=== PATIENT | female | born 1955 | race Caucasian/White ===

== ENCOUNTER → 2017-12-27 11:14 | Outpatient (POV) | payer BC, SELFPAY | PROVIDERS: Visit Provider Nurse Practitioner Acute Care | DX: Z00.00 Encounter for general adult medical examination without abnormal findings (principal) ==

== ENCOUNTER → 2018-02-07 15:21 | Outpatient (POV) | payer BC, SELFPAY | PROVIDERS: Visit Provider Nurse Practitioner Acute Care | DX: Z00.00 Encounter for general adult medical examination without abnormal findings (principal) ==

== ENCOUNTER 2024-12-11 09:56 | Day surgery (SDC) | payer MEDICARE, OTHER, SELFPAY ==
[2024-12-05 14:06] VITALS: BMI 23.6
--- NOTE | 2024-12-07 17:52 | EXP.HP ---
History of Present Illness *Admission Date: 12/11/24 *History of present illness: Mrs. Phillips is a 69-year-old female who is here for diagnostic EGD. 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 She did not improve with Voquezna. She was also given Xifaxan without improvement. She can have the attacks 3-4 times daily. Her last EGD and colonoscopy together were in October 2022. She did have some mild esophageal dysmotility and bile reflux with gastropathy. I do have a CT report of the abdomen and pelvis from October 2020 which was normal. The examination is deemed medically necessary for diagnostic EGD. The patient has been seen, interviewed and examined prior to the procedure by both myself and the anesthesia provider. [facility] Disclaimer: The information contained in this section may have been updated after the patient was seen, as this information can be updated by other users. Medical History Uterine cancer Stomach ulcer Sliding hiatal hernia Sleep apnea Kidney stones High blood pressure Gastric polyps Esophageal dysmotility Colon polyps Anemia Surgical History History of removal of cyst History of appendectomy History of hysterectomy History of liver biopsy History of cholecystectomy History of carpal tunnel release of both wrists Family History Father Pancreatic cancer Other Family history of cancer Heart attack Stroke Social History (Updated 12/11/24 @ 10:45 by Darin Harman CRNA) Smoking Status: Never smoker alcohol intake: never substance use type: denies use current occupational status: employed Travel in the last 8 weeks?: None household members: none housing: house current occupation: [employer] current occupational exposures/hazards: Yes caffeine: Yes Have you lived/traveled outside [place] in past 30 days?: No Contact w/someone who lives/traveled outside [place] past 30 days?: No Exposure to someone with infectious disease in past 14 days?: No Do you have a fever (greater than 100.4 F or 38 C)?: No Have you tested positive for COVID-19?: No Exposed to someone with COVID-19 in past 14 days?: No Do you have a sore throat?: No Do you have a cough?: No Do you have any weakness?: No Are you experiencing any nausea/vomitting?: No Do you have any diarrhea?: No Are you experiencing any unusual bleeding?: No Do you have any muscle aches/pain?: No Do you have any abdominal pain?: No Are you experiencing loss of taste or smell?: No Other Medical History Have you received the Flu Vaccine for this season: Yes Have you received the Pneumonia Vaccine: Yes Review of Systems Review of Systems Review of systems (narrative): Negative *Cardiovascular Comments: Negative *Gastrointestinal Comments: Negative *Genitourinary Comments: Negative *Musculoskeletal Comments: Negative *Neurologic Comments: Negative Meds Home Medications and Allergies Home Medications ?Medication ?Instructions ?Recorded ?Confirmed ?Type triamterene 75 1 ea PO DAILY blood pressure 10/25/17 12/11/24 History mg-hydrochlorothiazide 50 mg tablet (Maxzide) venlafaxine 150 mg 150 mg PO DAILY mood 10/25/17 12/11/24 History capsule,extended release 24 hr (Effexor XR) metformin 1,000 mg tablet 1,000 mg PO BID 10/24/20 12/11/24 History montelukast 10 mg tablet 10 mg PO DAILY 10/24/20 12/11/24 History potassium chloride 10 mEq 10 meq PO DAILY 10/24/20 12/11/24 History tablet,extended release topiramate 50 mg tablet (Topamax) 50 mg PO DAILY 10/24/20 12/11/24 History fluticasone propionate 50 2 spray intranasal DAILY 01/11/24 12/11/24 History mcg/actuation nasal spray,suspension sacrosidase 8,500 unit/mL oral 1 ml PO ACHS 01/11/24 12/11/24 History solution (Sucraid) sucralfate 1 gram tablet 1 g PO BID 01/11/24 12/11/24 History valsartan 40 mg tablet 40 mg PO DAILY 01/11/24 12/11/24 History vonoprazan 20 mg tablet (Voquezna) 20 mg PO DAILY 01/11/24 12/11/24 History fluticasone fur. 200 mcg-umeclid 1 ea inhalation DAILY 07/11/24 12/11/24 History 62.5 mcg-vilant 25 mcg inhalat.powder (Trelegy Ellipta) polyethylene glycol 3350 17 17 g PO DAILY 07/11/24 12/11/24 History gram/dose oral powder (Miralax) psyllium husk 6 gram/6 gram oral 1 tbsp PO DAILY 07/11/24 12/11/24 History powder (Konsyl Sugar-Free) cholecalciferol (vitamin D3) 25 25 mcg PO DAILY 09/04/24 12/11/24 History mcg (1,000 unit) capsule ferrous sulfate 325 mg (65 mg 325 mg PO Q OTHER DAY 09/04/24 12/11/24 History iron) tablet (Feosol) Bifidobacterium longum 10 million 1 cell PO DAILY 11/16/24 12/11/24 History cell capsule (Align (B.longum)) atorvastatin 20 mg tablet 10 mg PO DAILY 11/16/24 12/11/24 History buspirone 10 mg tablet 20 mg PO BID 11/16/24 12/11/24 History New Prescriptions to Start Prescriptions: Allergies Allergy/AdvReac Type Severity Reaction Status Date / Time amoxicillin Allergy Severe Redness of Verified 12/11/24 10:25 Skin NSAIDS (Non-Steroidal Allergy Severe Swelling Verified 12/11/24 10:25 Anti-Inflamma of Lip/Tongue/Throat Penicillins Allergy Severe Redness of Verified 12/11/24 10:25 Skin Exam Data for Last 24 hours I & O for Last 24 hours: Intake & Output 12/04/24 12/05/24 12/06/24 12/07/24 23:59 23:59 23:59 23:59 Weight 138 lb *Routine HEENT Exam Head: Present normocephalic Eye: Present EOMI and PERRL ENT: Present mucous membranes moist *Routine Neck Exam Neck: Present supple *Routine Respiratory Exam Respiratory: Present CTA bilaterally *Routine Cardiovascular Exam Cardiovascular: Present RRR *Routine Abdominal Exam Abdominal: Present soft and normoactive bowel sounds; Absent tenderness *Routine Rectal Exam Rectal:: deferred *Routine Genitalia Exam Genitalia:: deferred *Routine Extremities Exam Extremities: Absent cyanosis, clubbing or edema *Routine Skin Exam Skin: Present warm; Absent rash *Routine Neurological Exam Neurological: Present alert and oriented X3 Assessment and Plan *Assessment and plan (1) Epigastric pain: Status: Acute Category: Medical Code(s): R10.13 - Epigastric pain (2) Functional dyspepsia: Status: Acute Category: Medical Code(s): K30 - Functional dyspepsia (3) Bloating: Status: Acute Category: Medical Code(s): R14.0 - Abdominal distension (gaseous) (4) Sucrase-isomaltase deficiency: Status: Acute Category: Medical Code(s): E74.31 - Sucrase-isomaltase deficiency Plan A/P: 1. Epigastric abdominal pain, bloating and dyspepsia which has been intractable is the preprocedural diagnosis. The patient will be anesthetized/sedated using MAC sedation. The patient has been seen and examined. Cardiac and lung assessment prior to the examination is stable. Proceed with planned diagnostic EGD.
--- NOTE | 2024-12-11 06:48 | HMH.PROCNOTE ---
[facility] Procedure Note Date: 12/11/24 Time: 11:34 Procedure Note:: Upper Endoscopy Procedure Report: Esophagogastroduodenoscopy with cold biopsies Endoscopost: Sincere Andrews II, MD Referring Physician: KEITH Hale Date of Procedure: December 11, 2024 Equipment: Olympus GIF-1100 standard upper endoscope Sedation: MAC sedation Indications: Mrs. Phillips is a 69-year-old female who is here for diagnostic EGD. 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 This can occur 3-4 times per night. She does state that she gets relief with taking Sucraid (not with a meal). She did not improve with Voquezna. She was also given Xifaxan without improvement. She can have the attacks 3-4 times daily. Her last EGD and colonoscopy together were in October 2022. She did have some mild esophageal dysmotility and bile reflux with gastropathy. I do have a CT report of the abdomen and pelvis from October 2020 which was normal. She does report a moderate amount of bloating, gassiness and belching. She has intermittent nausea, early satiety and heartburn. As long as she takes ClearLax and Konsyl, she has more regulated bowel function. The examination is deemed medically necessary for diagnostic EGD. Procedure: Prior to the procedure, a history and physical exam was performed, and patient's medications and allergies were reviewed. The risks, benefits and alternatives of the sedation and procedure were discussed with the patient. All questions were answered and informed consent was obtained. The patient was brought to the procedure room. Patient identification and proposed procedure were verified by the physician and the nurse. The patient was placed in a left lateral decubitus position and the scope was passed under direct vision. Throughout the procedure, the patient's blood pressure, pulse, and oxygen saturations were monitored continuously. The upper GI endoscopy was accomplished without difficulty. The patient tolerated the procedure well. Findings: The scope was passed directly into the upper esophagus and advanced to the third portion of the duodenum. The post bulbar duodenum and duodenal bulb were normal with normal mucosa and conniventes. A cold biopsy was taken from the second portion of the duodenum for the disaccharidase assay. The scope was withdrawn through a normal duodenal bulb and pylorus into the stomach. There was moderate linear reactive gastropathy of the antrum and body of the stomach with some bile reflux. There were a few gastric fundic gland polyps. Upon retroflexion there was no hiatal hernia. There was some proximal chronic gastritis and cold biopsies were obtained from the proximal lesser curvature to rule out H. pylori. The scope was then withdrawn into the esophagus. There was no evidence of reflux esophagitis or Malave's. There were tertiary contractions and evidence of mild esophageal dysmotility. The remainder of the esophageal mucosa was normal. Impression: 1. Nonerosive GERD with mild esophageal dysmotility 2. Moderate linear reactive gastropathy (from bile reflux) Plan: I will follow-up the biopsies and disaccharidase assay. I will discuss the findings with the patient and family as well as treatment options. She is using Sucraid for on-demand relief of her dyspepsia. I do feel that she would be better served by using OTC herbal Iberogast and continue treatment for neuromodulation (i.e. buspirone). I would also consider repeat imaging of the abdomen to exclude any other intra-abdominal etiology.
[2024-12-11 10:13] VITALS: BP 134/75; PULSE 85; RESP 16; TEMP 36.4; O2SAT 100; BMI 23.6
[2024-12-11] MEDS: LACTATED RINGERS 1000ML 1,000 ML 50 ML IV (10:27)
[2024-12-11 10:28] LABS: POC Glucose,Bedside 85 gm/dL (70-110)
--- NOTE | 2024-12-11 10:43 | EXP.ANES.CKL ---
[facility] Disclaimer: The information contained in this section may have been updated after the patient was seen, as this information can be updated by other users. Medical History Uterine cancer Stomach ulcer Sliding hiatal hernia Sleep apnea Kidney stones High blood pressure Gastric polyps Esophageal dysmotility Colon polyps Anemia Surgical History History of removal of cyst History of appendectomy History of hysterectomy History of liver biopsy History of cholecystectomy History of carpal tunnel release of both wrists Family History Father Pancreatic cancer Other Family history of cancer Heart attack Stroke Social History (Updated 12/11/24 @ 10:14 by Michelle Elias RN) Smoking Status: Never smoker alcohol intake: never substance use type: denies use current occupational status: employed Travel in the last 8 weeks?: None household members: none housing: house current occupation: [employer] current occupational exposures/hazards: Yes caffeine: Yes [facility] Anesthesia Checklist Patient Identification Patient Identification: Arm Band and Family Structural Data Admitted From: Home Planned Operative Procedure/s: EGD Consent for Planned Operative Procedure(s) Verified: Yes Verified Documents: Surgical Consent and History and Physical NPO Status Verified Time NPO: 00:00 Additional verifications Patient : No Anesthesia Reactions: No Hx Blood Transfusions: No Blood Transfusion Reaction: No Cephalosporin Allergy: Yes Previous Colonoscopy: Yes Airway Assessment Mallampati Score:: Class I Dentition: Edentulous Neurological Assessment Level of Consciousness: Awake, Alert, Appropriate and Follows Commands Hx Seizures: No Numbness or tingling in extremities: No Anesthesia Plan Anesthesia Risk discussed: Yes ASA Class: II Anesthesia Type: MAC Preoperative Comments Pre-Operative Comments: Poor heart pumping. Asthma. NIDDM. Severe stomach ache.
[2024-12-11 11:38] VITALS: BP 114/61; PULSE 78; RESP 18; TEMP 36.6; O2SAT 97
[2024-12-11 11:48] VITALS: BP 117/66; PULSE 78; RESP 18; TEMP 36.6; O2SAT 96
[2024-12-11 11:58] VITALS: BP 110/64; PULSE 76; RESP 18; TEMP 36.6; O2SAT 97
[2024-12-11 12:08] VITALS: BP 114/69; PULSE 75; RESP 18; TEMP 36.6; O2SAT 97
[2024-12-14 16:57] LABS: Interpretation Notes (.); Lactase 40.78 (>/= 14.0); Maltase 175.25 (>/= 110.0); Palatinase 12.55 (>/= 8.5); Reference Notes (.); Sucrase 51.54 (>/= 25.0)
== END 2024-12-11 12:22 | disposition home or self-care (01) ==
PROVIDERS: PCP Nurse Practitioner Family; Visit Provider Internal Medicine Gastroenterology
PROC: 0DJ08ZZ Inspection of Upper Intestinal Tract, Via Natural or Artificial Opening Endoscopic (ICD-10-PCS; CPT 43239; principal; 2024-12-11 11:30)
DX: K30 Functional dyspepsia (principal); E74.31 Sucrase-isomaltase deficiency; K58.1 Irritable bowel syndrome with constipation; K21.9 Gastro-esophageal reflux disease without esophagitis; K22.4 Dyskinesia of esophagus; K31.89 Other diseases of stomach and duodenum; I10 Essential (primary) hypertension; D64.9 Anemia, unspecified; Z79.899 Other long term (current) drug therapy; Z79.84 Long term (current) use of oral hypoglycemic drugs; Z79.51 Long term (current) use of inhaled steroids; Z88.0 Allergy status to penicillin; Z88.6 Allergy status to analgesic agent
CPT/HCPCS: 43239; 82657; 82962; J2003; J2704; J7120